=== PATIENT | female | born 1990 | race Caucasian/White ===

== ENCOUNTER 2018-09-07 12:40 | Emergency (ER) | payer OTHER ==
[2018-09-07 13:01] VITALS: BP 114/75
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
== END 2018-09-07 13:45 | disposition home or self-care (01) ==
LOC: UCEAST 12:40
DX: S00.03XA Contusion of scalp, initial encounter (principal); W07.XXXA Fall from chair, initial encounter; Y92.89 Other specified places as the place of occurrence of the external cause
CPT/HCPCS: 99211; G0463